=== PATIENT | female | born 1995 | race Hispanic/Latino ===

== ENCOUNTER 2018-03-14 22:14 | Emergency (ER) | payer MEDICAID, OTHER ==
[2018-03-15] MEDS ORDERED: MECLIZINE HCL 25 MG TABLET ONE (00:09)
[2018-03-15] MEDS ORDERED: ACETAMINOPHEN EXTRA STRENGTH 500 MG TABLET ONE (00:10)
== END 2018-03-15 00:27 | disposition home or self-care (01) ==
LOC: EDH 22:14
DX: H81.399 Other peripheral vertigo, unspecified ear (principal); I10 Essential (primary) hypertension

== ENCOUNTER 2018-07-04 22:52 | Emergency (ER) | payer OTHER ==
[2018-07-04 23:16] LABS: APPEARANCE,URINE Cloudy (CLEAR); BILIRUBIN,URINE Negative (NEGATIVE); COLOR,URINE Yellow (YELLOW); GLUCOSE, URINE (UA) Negative (NEGATIVE); KETONES,URINE Negative (NEGATIVE); LEUKOCYTE ESTERASE ,URINE Trace (NEGATIVE); NITRATE,URINE Negative (NEGATIVE); OCCULT BLOOD,URINE Negative (NEGATIVE); PROTEIN,URINE Negative (NEGATIVE)
[2018-07-04 23:43] LABS: HCG,QUAL RESULT NEGATIVE (NEGATIVE)
[2018-07-04 23:45] LABS: AMORPHOUS SEDIMENT,UR Moderate /LPF (None Seen); BACTERIA,URINE None Seen /HPF (None Seen); RBC,URINE None Seen /HPF (0-1); SQUAMOUS EPITHELIAL CELL,UR Few /HPF (0-2); WBC,URINE 0-1 /HPF (0-1)
[2018-07-05] LABS: BASOPHILS % (AUTO) 0.4 % (0.0-5.0); EOSINOPHILS % (AUTO) 2.6 % (0.0-8.0); MEAN CORPUSCULAR HEMOGLOBIN 25.4 pg (27.0-33.0); MEAN CORPUSCULAR HGB CONC 33.6 g/dL (32.0-36.0); MEAN CORPUSCULAR VOLUME 75.7 fL (79-99); MONOCYTES % (AUTO) 7.8 % (3.0-13.0); NEUTROPHILS % (AUTO) 62.2 % (40.0-77.0); PLATELET COUNT (AUTO) 214 K/uL (130-400); RED BLOOD CELL COUNT(AUTO) 4.89 MIL/uL (4.00-5.50); RED CELL DISTRIBUTION WIDTH 15.7 % (11.0-15.5); WHITE BLOOD COUNT (AUTO) 9.2 K/uL (4.8-10.8)
[2018-07-05 00:10] LABS: CREATININE 0.5 mg/dL (0.5-1.5); POTASSIUM 4.2 mmol/L (3.5-5.1)
[2018-07-05 00:14] LABS: ALBUMIN 3.3 g/dL (3.5-5.0); BILIRUBIN,TOTAL 0.2 mg/dL (0.2-1.0); TOTAL PROTEIN, SERUM 6.9 g/dL (6.0-8.3)
[2018-07-05] MEDS ORDERED: IBUPROFEN 600 MG TABLET ONE (00:28)
== END 2018-07-05 01:19 | disposition home or self-care (01) ==
LOC: EDH 22:52
DX: R10.32 Left lower quadrant pain (principal)
CPT/HCPCS: 36415; 80053; 81001; 81025; 85025

== ENCOUNTER 2019-04-16 20:16 | Inpatient (IN) | payer MEDICAID ==
[~2019-04-16] VITALS: Ht 152.4 cm; Wt 62.6 kg
[2019-04-16] MEDS ORDERED: PROMETHAZINE HCL 25 MG/ML 1ML AMPULE IM SCH (21:00)
[2019-04-16] MEDS ORDERED: MEPERIDINE-PF 50 MG/ML SYG IVP ONE (21:00)
[2019-04-16] MEDS ORDERED: AMPICILLIN 2GM+NS 100ML 100 ML IV SCH (21:00)
[2019-04-16] MEDS ORDERED: OXYTOCIN-LR 20 UNITS/1000 ML 1,000 ML IV SCH ×2 (21:00→21:30)
[2019-04-16 21:46] LABS: APPEARANCE,URINE Cloudy (CLEAR); BILIRUBIN,URINE Negative (NEGATIVE); COLOR,URINE Yellow (YELLOW); GLUCOSE, URINE (UA) Negative (NEGATIVE); KETONES,URINE Negative (NEGATIVE); LEUKOCYTE ESTERASE ,URINE Large (NEGATIVE); NITRATE,URINE Negative (NEGATIVE); OCCULT BLOOD,URINE Negative (NEGATIVE); PROTEIN,URINE Negative (NEGATIVE)
[2019-04-16 21:53] LABS: HEMATOCRIT 33.4 % (36-48); MEAN CORPUSCULAR HGB CONC 31.8 g/dL (32.0-36.0); MEAN CORPUSCULAR VOLUME 66.1 fL (79-99); NUCLEATED RED BLOOD CELLS 0.1 % (0.0-0.19); PLATELET COUNT (AUTO) 141 K/uL (130-400); RED BLOOD CELL COUNT(AUTO) 5.05 MIL/uL (4.00-5.50); RED CELL DISTRIBUTION WIDTH 18.1 % (11.0-15.5); WHITE BLOOD COUNT (AUTO) 10.1 K/uL (4.8-10.8)
[2019-04-16] MEDS: LACTATED RINGERS 1000ML 1,000 ML IV PRN (21:53)
[2019-04-16 22:06] LABS: BACTERIA,URINE Few /HPF (None Seen); RBC,URINE 0-1 /HPF (0-1); SQUAMOUS EPITHELIAL CELL,UR Moderate /HPF (0-2)
[2019-04-16 22:07] LABS: INR 0.89 (0.85-1.15); PARTIAL THROMBOPLASTIN TIME 24.5 SEC (26.3-35.5); PROTHROMBIN TIME 9.4 SEC (9.6-11.6)
[2019-04-16 22:07] LABS: AMORPHOUS SEDIMENT,UR Rare /LPF (None Seen); YEAST,URINE BUDDING Rare /HPF (None Seen)
[2019-04-16 22:11] LABS: ALBUMIN 2.6 g/dL (3.5-5.0); BILIRUBIN,TOTAL 0.4 mg/dL (0.2-1.0); CREATININE 0.5 mg/dL (0.5-1.5); POTASSIUM 4.3 mmol/L (3.5-5.1); TOTAL PROTEIN, SERUM 7.3 g/dL (6.0-8.3); URIC ACID 3.8 mg/dL (2.6-7.2)
[2019-04-17] MEDS: AMPICILLIN 1GM+NS 50ML 50 ML IV SCH (02:00)
[2019-04-17] MEDS ORDERED: OXYTOCIN 10 USP UNITS/ML 20 UNIT in LACTATED RINGERS 1000ML 1,000 ML IV SCH (04:00)
[2019-04-17] MEDS: LACTATED RINGERS 1000ML 1,000 ML IV PRN (05:16)
[2019-04-17] MEDS ORDERED: MEPERIDINE-PF 50 MG/ML SYG ONE (07:34)
[2019-04-17] MEDS ORDERED: MEASLES/MUMPS/RUBELLA VACCINE, LIVE 0.5 ML/VIAL SQ PRN (08:30)
[2019-04-17] MEDS ORDERED: DIPH,PERTUSS(ACELL),TET VAC/PF 0.5 ML VIAL IM PRN (08:30)
[2019-04-17] MEDS ORDERED: BENZOCAINE/LANOLIN/ALOE VERA 60 ML AEROSOL TP PRN (08:30)
[2019-04-17] MEDS ORDERED: LANOLIN 30GM OINTMENT TP PRN (08:30)
[2019-04-17] MEDS ORDERED: ACETAMINOPHEN 325 MG TAB PO PRN (08:30)
[2019-04-17] MEDS ORDERED: WITCH HAZEL 1 PAD TP PRN (08:30)
[2019-04-17 09:19] VITALS: BP 153/66
[2019-04-17] MEDS ORDERED: FERR-82 PO (09:58)
[2019-04-17] MEDS ORDERED: PREN-154 PO (09:58)
[2019-04-17] MEDS ORDERED: FLU VACC QS2019-20 36MOS UP/PF 60 MCG/0.5 ML ML IM ONE (10:00)
[2019-04-17] MEDS: IBUPROFEN 600 MG TABLET PO PRN (10:06)
[2019-04-17] MEDS: DOCUSATE SODIUM 100 MG CAP PO SCH ×2 (10:06→21:52)
[2019-04-17 17:19] VITALS: BP 135/78
[2019-04-17 19:21] VITALS: BP 135/82
[2019-04-17 23:34] VITALS: BP 134/86
[2019-04-18 04:03] VITALS: BP 106/69
[2019-04-18] MEDS: AMPICILLIN 1GM+NS 50ML 50 ML IV SCH (05:00)
[2019-04-18 05:54] LABS: HEMATOCRIT 28.2 % (36-48); MEAN CORPUSCULAR HEMOGLOBIN 20.6 pg (27.0-33.0); MEAN CORPUSCULAR HGB CONC 31.1 g/dL (32.0-36.0); MEAN CORPUSCULAR VOLUME 66.2 fL (79-99); NUCLEATED RED BLOOD CELLS 0.1 % (0.0-0.19); PLATELET COUNT (AUTO) 113 K/uL (130-400); RED BLOOD CELL COUNT(AUTO) 4.27 MIL/uL (4.00-5.50); RED CELL DISTRIBUTION WIDTH 18.3 % (11.0-15.5); WHITE BLOOD COUNT (AUTO) 12.5 K/uL (4.8-10.8)
[2019-04-18 07:14] LABS: HEPATITIS Bs ANTIGEN SCREEN P Negative (Negative)
[2019-04-18 07:27] VITALS: BP 132/85
--- NOTE | 2019-04-18 07:30 | NUR ---
Richard ADAMS CNM ROUNDED AND DISCHARGED PATIENT TO HOME. PATIENT REMAINS STABLE AND DENIES ANY PROBLEMS.
--- NOTE | 2019-04-18 08:00 | NUR ---
ASSESSMENT DONE AT THIS TIME AND PT VERBALIZED HAVING A BM THIS A.M. PATIENT DENIES PAIN AND TOLERATED BREAKFAST WELL. DENIES ANY DIZZINESS ON AMBULATION. HAS NO EDEMA AND NEGATIVE TYLER SIGN BILATERALLY.
[2019-04-18] MEDS: DOCUSATE SODIUM 100 MG CAP PO SCH (08:25)
--- NOTE | 2019-04-18 09:49 | NUR ---
HX WITH CPS Sw met with pt and BF Javier Umaña [phone], [birth year]. This is second child for couple, daughter Marcia Umaña and they have son 16months, Gentry Downing. Couple rents home in [place] @ [address]. Pt is not working, independent, drives, has Medicaid, WIC, and Food stamp assistance. BF works at [employer]. Couple have basic items for NB including car seat and [facility] will follow after dc. Pt denies any hx of abuse, domestic violence, mental health issues, legal or substance abuse. pt does report hx with CPS, states case was closed 9 months ago. This information was verified with local CPS office. Pt reports good family support, Bf works 3 days on 4 off and will be available to assist her after dc.
[2019-04-18] MEDS: IBUPROFEN 600 MG TABLET PO PRN (10:58)
[2019-04-18 11:22] VITALS: BP 117/69
--- NOTE | 2019-04-18 12:15 | NUR ---
DISCHARGE INSTRUCTIONS GIVEN AND PATIENT VERBALIZED UNDERSTANDING INSTRUCTIONS GIVEN. PATIENT DENIES PAIN AND AND TOLERATING ACTIVITY AND DIET WELL.
--- NOTE | 2019-04-18 13:15 | NUR ---
PATIENT WAS TAKEN VIA W/C TO [facility] IN [place]. PATIENT IS STABLE AND DENIES PAIN AT THIS TIME.
== END 2019-04-18 13:15 | disposition home or self-care (01) | DRG 560 ==
LOC: LDH 20:16 → WSH 04-17 09:37
PROVIDERS: ADMIT Obstetrics & Gynecology; ATTEND Obstetrics & Gynecology
PROC: 10E0XZZ Delivery of Products of Conception, External Approach (ICD-10-PCS; principal; 2019-04-16)
PROC: 3E0234Z Introduction of Serum, Toxoid and Vaccine into Muscle, Percutaneous Approach (ICD-10-PCS; 2019-04-16)
PROC: 3E02340 Introduction of Influenza Vaccine into Muscle, Percutaneous Approach (ICD-10-PCS; 2019-04-16)
PROC: 3E0134Z Introduction of Serum, Toxoid and Vaccine into Subcutaneous Tissue, Percutaneous Approach (ICD-10-PCS; 2019-04-16)
DX: O99.824 Streptococcus B carrier state complicating childbirth (principal); Z37.0 Single live birth; O34.83 Maternal care for other abnormalities of pelvic organs, third trimester; Z23 Encounter for immunization; Z3A.39 39 weeks gestation of pregnancy
CPT/HCPCS: 36415; 80053; 81001; 84550; 85027; 85384; 85610; 85730; 86592; 86850; 86900; 86901; 87340; 90715; A4606; G0378; J0290; J2175; J2550; J2590; J7120

== ENCOUNTER 2022-12-21 01:49 | Emergency (ER) | payer BC, MEDICAID ==
[~2022-12-21] VITALS: Ht 149.9 cm; Wt 58.5 kg
[~2022-12-21 01:49] MED LIST: FERR-82 PO; PREN-154 PO
[2022-12-21 01:52] VITALS: BP 131/87
[2022-12-21] MEDS ORDERED: CEFTRIAXONE 1G VIAL IVPB ONE (02:30)
[2022-12-21] MEDS ORDERED: KETOROLAC 30MG VIAL (30MG/ML) IVP ONE (02:30)
[2022-12-21] MEDS ORDERED: 0.9%NACL 1000ML 2,500 ML IV ONE (02:30)
[2022-12-21] MEDS ORDERED: ONDANSETRON 4MG INJ ONE (02:48)
[2022-12-21 02:55] LABS: BASOPHILS % (AUTO) 0.2 % (0.0-5.0); EOSINOPHILS % (AUTO) 0.2 % (0.0-8.0); HEMATOCRIT 40.5 % (36-48); LYMPHOCYTES % (AUTO) 9.3 % (21.0-51.0); MEAN CORPUSCULAR HEMOGLOBIN 25.9 pg (27.0-33.0); MEAN CORPUSCULAR HGB CONC 33.8 g/dL (32.0-36.0); MEAN CORPUSCULAR VOLUME 76.6 fL (79-99); MONOCYTES % (AUTO) 5.2 % (3.0-13.0); NEUTROPHILS % (AUTO) 84.5 % (40.0-77.0); PLATELET COUNT (AUTO) 180 K/uL (130-400); RED BLOOD CELL COUNT(AUTO) 5.29 MIL/uL (4.00-5.50); RED CELL DISTRIBUTION WIDTH 12.5 % (11.0-15.5); WHITE BLOOD COUNT (AUTO) 12.4 K/uL (4.8-10.8)
[2022-12-21 03:14] LABS: APPEARANCE,URINE CLEAR (CLEAR); BILIRUBIN,URINE NEGATIVE (NEGATIVE); COLOR,URINE COLORLESS (YELLOW); GLUCOSE, URINE (UA) NEGATIVE (NEGATIVE); KETONES,URINE NEGATIVE (NEGATIVE); LEUKOCYTE ESTERASE ,URINE NEGATIVE Leu/uL (NEGATIVE); NITRATE,URINE NEGATIVE (NEGATIVE); OCCULT BLOOD,URINE NEGATIVE (NEGATIVE); PH,URINE 6.5 (5.0-8.0); PROTEIN,URINE NEGATIVE (NEGATIVE); UROBILINOGEN,URINE 0.2 mg/dL (0.2-1.0)
[2022-12-21 03:15] LABS: INR 1.07 (0.85-1.15); PROTHROMBIN TIME 12.4 SEC (9.6-11.6)
[2022-12-21 03:16] LABS: ALBUMIN 3.2 g/dL (3.5-5.0); CREATININE 0.5 mg/dL (0.5-1.5); PARTIAL THROMBOPLASTIN TIME 29.5 SEC (26.3-35.5); TOTAL PROTEIN, SERUM 7.1 g/dL (6.0-8.3)
[2022-12-21] MEDS ORDERED: AMOX500C2 PO ×2 (03:19→03:21)
[2022-12-21] MEDS ORDERED: IBUP-1493 PO ×2 (03:19→03:21)
== END 2022-12-21 04:11 | disposition home or self-care (01) ==
LOC: EDH 01:49
DX: J03.90 Acute tonsillitis, unspecified (principal); Z20.822 Contact with and (suspected) exposure to COVID-19
CPT/HCPCS: 99284; 96365; 87635; 96375 ×2; 82550; 84484; 80053; 85025; 85610; 85730; 87040 ×2; 87088; 87880; 87804 ×2; 83605; 81003; 81025; 36415; C9803; J7030; J0696; J2405; J1885

== ENCOUNTER 2023-09-30 04:56 | Emergency (ER) | payer BC, OTHER ==
[~2023-09-30] VITALS: Ht 149.9 cm; Wt 59.9 kg
[~2023-09-30 04:56] MED LIST changes: +AMOX500C2 PO; +IBUP-1493 PO
[2023-09-30] MEDS: BUPIVACAINE/PF 0.5% 10ML VIAL IJ ONE (05:18)
[2023-09-30] MEDS: BUPIVACAINE/PF 0.5% 30ML VIAL ONE (05:18)
[2023-09-30 05:20] VITALS: BP 135/88; PULSE 68; RESP 16; O2SAT 98
[2023-09-30] MEDS ORDERED: CLIN-116 PO (05:20)
[2023-09-30] MEDS ORDERED: IBUP-2070 PO (05:20)
[2023-09-30] MEDS ORDERED: BUPIVACAINE/PF 0.5% 10ML VIAL IJ ONE (05:30)
[2023-09-30] MEDS ORDERED: BUPIVACAINE/EPI/PF 0.5% 30ML VIAL IJ SCH (05:30)
== END 2023-09-30 05:48 | disposition home or self-care (01) ==
LOC: EDH 04:56
DX: K02.9 Dental caries, unspecified (principal); Z79.899 Other long term (current) drug therapy
CPT/HCPCS: 99284; 64400; J0665 ×2